=== PATIENT | male | born 1985 | race Caucasian/White ===

== ENCOUNTER 2021-07-18 10:41 | Emergency (ER) | payer SELFPAY ==
[2021-07-18 10:43] VITALS: BP 122/82
[2021-07-18] MEDS ORDERED: SODIUM CHLORIDE 0.9% 1000 ML 1,000 ML IV ONE (12:46)
--- NOTE | 2021-07-18 12:47 | Event Note ---
ED Screening Note ED Screening Note: co severe lbp hiccups on exam-- thorazine ordered senior accountant cpa used pmh none psh none rx none denies cig/etoh/drugs This initial assessment/diagnostic orders/clinical plan/treatment(s) is/are subject to change based on patients health status, clinical progression and re- assessment by fellow clinical providers in the ED. Further treatment and workup at subsequent clinical providers discretion. Patient/guardian urged not to elope from the ED as their condition may be serious if not clinically assessed and managed. Initial orders include: ua labs ivf/zofran/toradol ro kidney stone
[2021-07-18] MEDS ORDERED: chlorproMAZINE 25 MG in SODIUM CHLORIDE 0.9% 50 ML IV ONE (12:49)
[2021-07-18] MEDS: ONDANSETRON 4 MG/2 ML INJ IV ONE ×2 (13:04→13:09)
[2021-07-18] MEDS: KETOROLAC 30 MG/1 ML INJ IV ONE ×2 (13:04→13:09)
[2021-07-18 13:15] LABS: Bilirubin,Urine NEG (Negative); Blood,Urine MOD (Negative); Color,Urine Amber (Yellow); Mucus,Urine 3+ /HPF
[2021-07-18 13:16] LABS: RBC,Urine > 182.0 /HPF (0.0-6.0)
[2021-07-18] MEDS ORDERED: cefTRIAXone/NS 1 GM/50 ML 1 GM/50 ML BAG IV ONE (13:28)
[2021-07-18 13:45] LABS: Alanine Aminotransferase 30 units/L (7-56); Albumin 4.7 g/dL (3.9-5); BUN/Creatinine Ratio 18; Blood Urea Nitrogen 18 mg/dL (9-20); Calcium 9.6 mg/dL (8.4-10.2); Hemolysis Index 6
[2021-07-18 13:51] LABS: Hematocrit 45.9 % (35.5-45.6); Mean Corpuscular HGB Conc 33 % (32-34); Mean Corpuscular Volume 94 fl (84-94); Red Blood Count 4.91 M/mm3 (3.65-5.03); Red Cell Distribution Width 12.7 % (13.2-15.2)
[2021-07-18 13:52] LABS: Platelet Count 36 K/mm3 (140-440)
--- NOTE | 2021-07-18 14:15 | Cat Scan Report ---
CT abdomen pelvis wo con INDICATION: back pain and hematuria. COMPARISON: None TECHNIQUE: Abdominal and pelvic CT exam performed. All CT scans at this location are performed using CT dose reduction for ALARA by means of automated exposure control. FINDINGS: CT ABDOMEN and PELVIS: Lung Bases: No significant abnormality. Liver: No significant abnormality. Biliary: No significant abnormality. Spleen: No significant abnormality. Pancreas: No significant abnormality. Adrenals: No significant abnormality. Kidneys: 4 mm stone in the proximal right ureter with mild hydroureteronephrosis. Mild periureteral a nd perinephric stranding. No other stones. No left hydronephrosis. Lymphatics: No lymphadenopathy. Vasculature: No significant abnormality. Bowel: No significant abnormality. Appendix is nonvisualized. However, no inflammatory changes in th e right lower quadrant to suggest appendicitis. Pelvis: No significant abnormality. Osseous Structures: No aggressive osseous lesion. Additional Findings: None IMPRESSION: 1. 4 mm proximal right intraureteral stone with mild hydroureteronephrosis Signer Name: Miguel Angel Gallegos MD Signed: 07/18/2021 2:11 PM Workstation Name: [id number]
--- NOTE | 2021-07-18 16:53 | Emergency Department Report ---
ED General Adult HPI - General Chief complaint: Abdominal Pain Stated complaint: BACK PAIN Time Seen by Provider: 07/18/21 12:46 Source: EMS Mode of arrival: Ambulatory Limitations: No Limitations - History of Present Illness Initial comments: 35-year-old male presents emergency department complaining of flank pain with increased urinary urgency. Reports no fever, chills, sweats. No hematuria but has had some tingling on urination. With no chest pain palpitation, no nausea no vomiting but has had some hiccups over the past although 1 week of not he is was unable to resolve -: Gradual Radiation: non-radiation, back Severity scale (0 -10): 10 Quality: aching, dull Consistency: constant Improves with: none Worsens with: none Treatments Prior to Arrival: none - Related Data Previous Rx's Medication Instructions Recorded Last Taken Type Ciprofloxacin HCl 500 mg PO BID #14 07/18/21 Unknown Rx Tamsulosin [Flomax] 0.4 mg PO QDAY #10 cap 07/18/21 Unknown Rx Allergies Allergy/AdvReac Type Severity Reaction Status Date / Time Unable to Assess Allergy Verified 07/18/21 10:43 ED Review of Systems ROS: Stated complaint: BACK PAIN Other details as noted in HPI Comment: All other systems reviewed and negative ED Past Medical Hx - Medications Home Medications: Home Medications Medication Instructions Recorded Confirmed Last Taken Type Ciprofloxacin HCl 500 mg PO BID #14 07/18/21 Unknown Rx Tamsulosin [Flomax] 0.4 mg PO QDAY #10 cap 07/18/21 Unknown Rx ED Physical Exam - General Limitations: No Limitations General appearance: alert, in no apparent distress - Head Head exam: Present: atraumatic, normocephalic - Eye Eye exam: Present: normal appearance, PERRL Pupils: Present: normal accommodation - ENT ENT exam: Present: normal exam, normal orophraynx, mucous membranes moist, TM's normal bilaterally - Neck Neck exam: Present: normal inspection, full ROM - Respiratory Respiratory exam: Present: normal lung sounds bilaterally. Absent: respiratory distress - Cardiovascular Cardiovascular Exam: Present: regular rate, normal rhythm. Absent: systolic murmur, diastolic murmur, rubs, gallop - GI/Abdominal GI/Abdominal exam: Present: soft, tenderness, normal bowel sounds. Absent: hyperactive bowel sounds, hypoactive bowel sounds, mass - Rectal Rectal exam: Present: deferred - Extremities Exam Extremities exam: Present: normal inspection - Back Exam Back exam: Present: normal inspection, full ROM, CVA tenderness (R), CVA tenderness (L) - Neurological Exam Neurological exam: Present: alert, oriented X3, CN II-XII intact, normal gait. Absent: motor sensory deficit, reflexes normal - Psychiatric Psychiatric exam: Present: normal affect, normal mood. Absent: anxious, manic, homicidal ideation, suicidal ideation - Skin Skin exam: Present: warm, dry, intact, normal color. Absent: rash, cyanosis, diaphoretic, erythema, pallor ED Course Vital Signs 07/18/21 10:41 Temperature 98 F Pulse Rate 89 Respiratory 20 Rate Blood Pressure 122/82 [Right] O2 Sat by Pulse 100 Oximetry ED Medical Decision Making - Lab Data Result diagrams: 07/18/21 13:01 07/18/21 13:01 - Radiology Data Radiology results: report reviewed [facility] [address] [place] [address] Cat Scan Report Signed Patient: SHAHAB NAVARRO MR#: [id number] 7 : 1985 Acct:[id number] Age/Sex: 35 / M ADM Date: 07/18/21 Loc: ED Attending Dr: Ordering Physician: LALA TAPIA Date of Service: 07/18/21 Procedure(s): CT abdomen pelvis wo con Accession Number(s): [id number] cc: LALA TAPIA CT abdomen pelvis wo con INDICATION: back pain and hematuria. COMPARISON: None TECHNIQUE: Abdominal and pelvic CT exam performed. All CT scans at this location are performed using CT dose reduction for ALARA by means of automated exposure control. FINDINGS: CT ABDOMEN and PELVIS: Lung Bases: No significant abnormality. Liver: No significant abnormality. Biliary: No significant abnormality. Spleen: No significant abnormality. Pancreas: No significant abnormality. Adrenals: No significant abnormality. Kidneys: 4 mm stone in the proximal right ureter with mild hydroureteronep hrosis. Mild periureteral and perinephric stranding. No other stones. No left hydronephrosis. Lymphatics: No lymphadenopathy. Vasculature: No significant abnormality. Bowel: No significant abnormality. Appendix is nonvisualized. However, no inflammatory changes in the right lower quadrant to suggest appendicitis. Pelvis: No significant abnormality. Osseous Structures: No aggressive osseous lesion. Additional Findings: None IMPRESSION: 1. 4 mm proximal right intraureteral stone with mild hydroureteronephrosis Signer Name: Miguel Angel Gallegos MD Signed: 07/18/2021 2:11 PM Workstation Name: [id number] Transcribed By: DIAN Dictated By: Miguel Angel Gallegos MD Electronically Authenticated By: Miguel Angel Gallegos MD Signed Date/Time: 07/18/21 1411 DD/ 1406 TD/TT: Print - Medical Decision Making Clinically the patient presents with nephrolithasis. IV pain medications, antiemetics, and IV fluids were given. A CT Abdomen/Pelvis was obtained for concern for a possible obstructing kidney stone and to rule out other pathologic conditions. The CT confirmed revealed a stone at right. The patient's labs were significant for elevated white count but normal kidney. With pain medication the patient improved significantly. The patient is referred to the on-call urologist for follow up and is discharged with oral narcotics for pain control, Flomax, antiemetics, and given the following return precautions: Fever > 100.5, pain not controlled with narcotics, vomiting or any other concerns and to strain the urine Critical care attestation.: If time is entered above; I have spent that time in minutes in the direct care of this critically ill patient, excluding procedure time. ED Disposition Clinical Impression: Kidney stone on right side Disposition: 01 HOME / SELF CARE / HOMELESS Is pt being admited?: No Does the pt Need Aspirin: No Condition: Stable Instructions: Low-Purine Eating Plan, Renal Colic, Enft-ce-Kaop, Laser Therapy for Kidney Stones, Kidney Stones Referrals: PRIMARY MD LORENA [Primary Care Provider] - 3-5 Days [facility] [Provider Group] - 3-5 Days LEV VERNON MD [Staff Physician] - 3-5 Days
== END 2021-07-18 19:57 | disposition home or self-care (01) ==
LOC: ED 10:41
DX: N20.2 Calculus of kidney with calculus of ureter (principal)
CPT/HCPCS: 36415; 74176; 80053; 81001; 83690; 85027; 87086; 96361; 96365; 96366; 96368; 96375; 99284; J0696; J1885; J2405; J3230; J7030; Q0162